=== PATIENT | female | born 1990 | race Hispanic/Latino ===

== ENCOUNTER 2022-09-05 20:42 | Inpatient (IN) | payer SELFPAY ==
[2022-09-05] MEDS ORDERED: Senokot S 8.6-50 MG TAB PO PRN (21:34)
[2022-09-05] MEDS ORDERED: HYDROcodone/Acetaminophen 5/325 mg Tablet PO PRN (21:34)
[2022-09-05] MEDS ORDERED: Calcium Carbonate 500 MG ChewTAB PO PRN (21:34)
[2022-09-05] MEDS ORDERED: Acetaminophen 325 MG TAB PO PRN (21:34)
[2022-09-05] MEDS ORDERED: Ondansetron PF 4 MG/2 ML Vial IVP PRN (21:34)
[2022-09-05] MEDS ORDERED: Guaifenesin DM 100-10/5 ML UDCUP PO PRN (21:34)
[2022-09-05] MEDS ORDERED: Vancomycin 1 GM in Premix Bag 1 BAG IVPB SCH (21:45)
[2022-09-05 22:20] VITALS: BMI 43.2
[2022-09-05] MEDS ORDERED: Pharmacy to Dose ABX/VANCOMYCIN IVPB PRN (22:41)
[2022-09-05] MEDS: Oseltamivir 75 MG CAP PO SCH (22:56)
[2022-09-05] MEDS: Doxycycline 100 MG in Sodium Chloride 0.9% 100 ML IVPB SCH (23:06)
[2022-09-05] MEDS: Nicotine 14 MG PATCH TD SCH (23:29)
[2022-09-05] MEDS: Sodium Chloride 0.9% 1,000 ML IV SCH (23:30)
[2022-09-06] MEDS ORDERED: VANCOMYCIN 1.75 GM/350 ML BAG ONE
[2022-09-06] MEDS ORDERED: FLU VACC QS2022-23(6MOS UP)/PF 60 MCG/0.5 ML SYRINGE IM ONE (00:30)
[2022-09-06] MEDS: VANCOMYCIN 1.75 GM/350 ML BAG 1.75 GM in Premix Bag 1 BAG IVPB SCH ×2 (00:42→12:06)
[2022-09-06] MEDS: Oxymetazoline HCl 0.05% ( 15 ML ) NASAL SCH ×2 (01:55→12:23)
[2022-09-06 03:29] LABS: SARS-CoV-2 NAA Rapid Test Not Detected (NotDetected)
[2022-09-06 04:23] LABS: Hemoglobin 11.1 g/dL (12.0-15.5); Mean Corpuscular HGB CONC 35.2 g/dL (32.0-36.0); Mean Corpuscular Hemoglobin 30.5 pg (27.0-33.0); Mean Corpuscular Volume 86.5 fl (81.6-98.3); Mean Platelet Volume 11.5 fl (7.4-10.4); Platelet Count 180 10x3/uL (150-450); RBC Distribution Width 11.9 % (11.5-14.5); Red Blood Cell (RBC) Count 3.64 10x6/uL (3.90-5.03); White Blood Cell (WBC) Count 5.8 10x3/uL (3.5-10.5)
[2022-09-06 04:42] LABS: MDiff Complete? YES
[2022-09-06 04:44] LABS: ALT (SGPT) 27 U/L (8-55); AST (SGOT) 25 U/L (5-34); Albumin 3.5 g/dL (3.5-5.0); Alkaline Phosphatase 64 U/L (40-110); Anion Gap 13 mmol/L (10-20); BUN (Urea Nitrogen) 4 mg/dL (7.0-18.7); Bilirubin, Total 0.9 mg/dL (0.2-1.2); Calc. Creatinine Clearance 234 mL/min (70-130); Calcium 8.5 mg/dL (7.8-10.44); Carbon Dioxide 22 mmol/L (22-29); Chloride 101 mmol/L (98-107); Estimated GFR 101; Globulin 3.9 g/dL (2.4-3.5); Glucose 239 mg/dL (70-105); Potassium 3.7 mmol/L (3.5-5.1); Protein, Total 7.4 g/dL (6.0-8.3); Sodium 132 mmol/L (136-145)
[2022-09-06 04:45] LABS: Band 16 % (5-11); Lymphocytes 12 % (21-51); Monocytes 13 % (0-10); Neutrophil 59 % (42-75)
[2022-09-06 04:46] LABS: Platelet Morphology Comment Appears Adequate; RBC Morphology Normal
[2022-09-06] MEDS ORDERED: metFORMIN 500 MG TAB PO SCH (08:00)
[2022-09-06] MEDS ORDERED: Dextrose 50% Abboject 50 ML SYRINGE SLOW IVP PRN (11:50)
[2022-09-06] MEDS ORDERED: HumaLOG 300 UNITS/3 ML VIAL SC PRN (11:50)
[2022-09-06] MEDS ORDERED: Dextrose 5% in Water 1,000 ML IV PRN (11:50)
[2022-09-06] MEDS: Doxycycline 100 MG in Sodium Chloride 0.9% 100 ML IVPB SCH (12:05)
[2022-09-06] MEDS: Oseltamivir 75 MG CAP PO SCH (12:05)
[2022-09-06] MEDS: Enoxaparin Sodium 40 MG/0.4 ML SYRINGE SC SCH (12:06)
[2022-09-06] MEDS: Sodium Chloride 0.9% 1,000 ML IV SCH ×2 (12:07→15:33)
[2022-09-06] MEDS ORDERED: Lidocaine 2% Jelly 5 ML TUBE TOP PRN (14:47)
[2022-09-06] MEDS ORDERED: Lidocaine 2% 6 ML SYR TOP PRN (15:00)
[2022-09-06] MEDS ORDERED: Doxycycline 100 MG VIAL ONE (22:22)
[2022-09-07] MEDS ORDERED: VANCOMYCIN 1.75 GM/350 ML BAG ONE (00:58)
[2022-09-07] MEDS: Sodium Chloride 0.9% 1,000 ML IV SCH (01:00)
[2022-09-07] MEDS: VANCOMYCIN 1.75 GM/350 ML BAG 1.75 GM in Premix Bag 1 BAG IVPB SCH (01:00)
[2022-09-07] MEDS: Doxycycline 100 MG in Sodium Chloride 0.9% 100 ML IVPB SCH ×2 (01:32→11:51)
[2022-09-07] MEDS: Nicotine 14 MG PATCH TD SCH (01:33)
[2022-09-07] MEDS: Oxymetazoline HCl 0.05% ( 15 ML ) NASAL SCH ×2 (01:33→12:00)
[2022-09-07] MEDS: Oseltamivir 75 MG CAP PO SCH ×2 (01:33→11:47)
[2022-09-07] MEDS: VANCOMYCIN 2 GRAM/400 ML BAG 2 GM in Premix Bag 1 BAG IVPB SCH ×2 (11:00→11:51)
[2022-09-07] MEDS: Enoxaparin Sodium 40 MG/0.4 ML SYRINGE SC SCH (11:50)
[2022-09-07 17:14] VITALS: BP 129/89; TEMP 97
== END 2022-09-07 17:30 | disposition home or self-care (01) | DRG 872 ==
LOC: OBSVTOIN 20:42 → CSHTELE 20:42
PROVIDERS: ADMIT Student in an Organized Health Care Education/Training Program; ATTEND Internal Medicine
DX: A41.9 Sepsis, unspecified organism (principal); E87.1 Hypo-osmolality and hyponatremia; Z68.41 Body mass index [BMI] 40.0-44.9, adult; J10.1 Influenza due to other identified influenza virus with other respiratory manifestations; L73.2 Hidradenitis suppurativa; E28.2 Polycystic ovarian syndrome; E66.01 Morbid (severe) obesity due to excess calories; F17.210 Nicotine dependence, cigarettes, uncomplicated; E11.65 Type 2 diabetes mellitus with hyperglycemia; Z71.6 Tobacco abuse counseling; Z79.899 Other long term (current) drug therapy; Z82.49 Family history of ischemic heart disease and other diseases of the circulatory system; Z88.0 Allergy status to penicillin; Z91.013 Allergy to seafood; Z20.822 Contact with and (suspected) exposure to COVID-19
CPT/HCPCS: 36415; 36416; 80053; 80202; 83036; 84145; 85025; 97139; J1650; J3370; J3490; J7050; U0002